=== PATIENT | male | born 1955 | race Caucasian/White ===

== ENCOUNTER → 2019-01-29 | Outpatient (CLI) | payer OTHER | LOC: COL.RAD 10:34 | DX: Z01.818 Encounter for other preprocedural examination (principal); I71.4 Abdominal aortic aneurysm, without rupture; I72.3 Aneurysm of iliac artery; I72.4 Aneurysm of artery of lower extremity; M46.96 Unspecified inflammatory spondylopathy, lumbar region; M51.36 Other intervertebral disc degeneration, lumbar region; M16.11 Unilateral primary osteoarthritis, right hip; N20.0 Calculus of kidney | CPT/HCPCS: Q9967 ==

== ENCOUNTER 2019-03-12 09:38 | Day surgery (SDC) | payer OTHER ==
[~2019-03-12] VITALS: Ht 167.8 cm; Wt 66.0 kg
[2019-03-12] VITALS (10 sets, daily range): BP systolic 92–115; BP diastolic 52–73; PULSE 63–79; TEMP 97.4–98.3
[2019-03-12 10:14] LABS: HEMATOCRIT 41.9 % (42.0-52.0); HEMOGLOBIN 14.1 g/dl (13.5-18.0); MEAN CELL VOLUME 93 fl (80.0-100.0); MEAN CORPUSCULAR HEMOGLOBIN 31 pg (27.0-31.0); MEAN CORPUSCULAR HGB CONC 34 g/dl (33.0-37.0); MEAN PLATELET VOLUME 10.9 fl (7.4-10.4); PLATELET COUNT 224 K/mm3 (130-400); REDCELL DISTRIBUTION WIDTH-CV 14.9 % (11.5-14.5)
[2019-03-12] MEDS ORDERED: PRINZIDE 12.5 M1 TA1 PO (10:28)
[2019-03-12] MEDS ORDERED: NORVASC 5MG5 MG/TAB PO (10:29)
[2019-03-12] MEDS ORDERED: ASPIRIN E.C. 8181 MG PO (10:31)
[2019-03-12] MEDS ORDERED: LIPITOR20 MG PO (10:32)
[2019-03-12 10:48] LABS: CREATININE, serum 1.84 (0.66-1.25); POTASSIUM 3.5 mmol/L (3.4-5.0)
--- NOTE | 2019-03-12 12:21 | NUR ---
ALL MEDICATIONS GIVEN WITH VORB FROM . SEE MERGE FOR ALL MEDICATION ADMIN TIMES. SEE MERGE FOR ALL RASS ASSESSMENTS DURING AND POST PROCEDURE. POSITIVE BARBEAU'S TEST IN THE RIGHT WRIST. FLUID BOLUS OF 250 MLS INFUSING ON ARRIVAL TO SCHEDULE ANALYST.
--- NOTE | 2019-03-12 14:45 | NUR ---
Bedside report given to Tia. Right radial site clean, dry, and intact with TR band in place with 11 mls of air in the band. No oozing or hematoma present. Telemetry in place. VS stable. Patient denies pain. Call light within reach, bed in locked and lowest position.
--- NOTE | 2019-03-12 14:56 | NUR ---
Patient up to room, escorted in bed by EDGAR Estrada. at bedside. Patient appears irritated. Right radial heart cath site, balloon 11ccs of air, site is soft, no bleeding. No complaints at this time. Call light within reach.
--- NOTE | 2019-03-12 15:15 | NUR ---
Patient TR band still on, balloon inflated, bed rest for hour. Patient is agitated. Assessment complete. Denies dizzines, chest pain, n/v. Bilateral hands are cold, cap refill <3, radial pulses strong bilaterally. Med rec and allergies reviewed. Will continue to monitor. Call light within reach.
--- NOTE | 2019-03-12 15:57 | NUR ---
Patient called, feels like "thumb is going numb" and per "hand looks blue". This nurse checked on patient. Hand looks the same color as it did when he arrived. Cap refill is <3 sec, pulse is palpable. Right forearm is significantly harder than left forearm. Patient c/o of mild pain when touching. Patient up to restroom, asked patient to return to bed so we could apply pressure while waiting for director geophysical laboratory to return to look at site. No bleeding or hematoma at site.
--- NOTE | 2019-03-12 16:11 | NUR ---
cytology laboratory manager up to see site, no bleeding. TR band still in place, balloon still inflated. labor relations specialist placed another TR band above first band. Per cytology laboratory manager, "more than likely the arm would be harder further down the forearm". 15 cc air placed in second balloon of TR band. Smairat notified, per Smairat "observe overnight, if worsen, will get ultrasound in the morning. Order PRN morphine 1MG Q4h for pain." Discussed with patient, verbalizes understanding. Informed patient to let nurse know if any numbness or tingling occurs. Will continue to monitor and reassess. Patient wanting to order food. Informed patient of heart healthy diet. patient not happy, cursing about menu choices.
--- NOTE | 2019-03-12 18:39 | NUR ---
patient balloons deflated, TR bands removed. patient right hand is warm, no longer cool or cold. Cap refill <3, radial pulses palpable. RFA is still hard but softer than earlier. Continuing to monitor. Patient has PRN pain medication, morphine, declines anything for pain. No other needs at this time. Call light within reach.
--- NOTE | 2019-03-12 19:00 | NUR ---
Kalyan sitting up in bed watching TV. bedside report complete with Rosa RN at this time. NS infusing at 100ml/hr as ordered. Patient denies c/o of pain or discomfort. Attitude calm and pleasant. Right radial heart Cath observed. Puncture site intact no bleeding. Hand pink and extremity pink and warm. Mid forearm presents with mild swelling and is firm. Day nurse reports that there is no change since slab miller operator looked at it over 1 hour ago. Petechia bruising to hand and wrist. Patient denies c/o of pain. Patient encouraged to notify with any pain, numbness or tingling, or tightness. Patient acknowleges understanding
--- NOTE | 2019-03-12 19:13 | NUR ---
Report given to CANDACE Santos. Patient states hand feels better, extremities are warm, good color, cap refill <3, pulses strong. Per patient, thumb doesn't feel "as numb, i can move it around". There is some petechiae on the right hand and thumb. RFA is getting softer. CANDACE Santos will resume cares and monitor.
--- NOTE | 2019-03-12 20:55 | NUR ---
ASSESSMENT COMPLETED @ 2029. PATIENT LAYING IN BED WATCHING TV. DENIES COMPLAINTS. A/O X 4. NO REPORTS OF PAIN WHEN ASKED. ATTITUDE CALM AND PLEASANT. RIGHT RADIAL HEART CATH PUNCTURE SITE INTACT. NO BLEEDING. MID FOREARM SWELLING AND FIRM THE SAME CHART @ 1900. PATIENT HAS FULL ROM TO HAND AND ARM. DENIES NUMBNESS OR TINGLING. HAND AND FOREARM PINK AND WARM. NO CHANGE IN PETECHIAE BRUISE TO HAND AND WRIST. PATIENT DENIES QUESTIONS OR CONCERNS AT END OF VISIT.
--- NOTE | 2019-03-13 00:20 | NUR ---
PATIENT LAYING IN BED WITH EYES CLOSED. PRESENTS WITH RELAXED BODY POSTURE AND EVEN NON LABORED BREATHING. LIGHT SNORING. AUDIBLE WHEEZING NOTED. PATIENT HAS CHRONIC COPD PER REPORT EARLIER THIS EVENING. REPORTS USING ALBUTEROL INHALER AND NEBULIZER TX NEEDED. REFUSED TX EARLIER THIS EVENING. WILL CONTINUE TO MONITOR. SEE FLOW SHEET FOR FVS WNL. HEART RATE REGULAR ON TELEMETRY. SPO2 WNL ON ROOM AIR.
--- NOTE | 2019-03-13 02:00 | NUR ---
PATIENT LAYING IN BED WITH EYES CLOSED. PRESENTS WITH RELAXED BODY POSTURE AND EVEN NON LABORED RESPIRATIONS. LIGHT SNORIG. NO AUDIBLE WHEEZING. RIGHT RADIAL HEART CATH OBSERVED. NO CHANGE FROM MIDNIGHT OBSERVATION. CALL LIGHT WITHIN REACH.
[2019-03-13 03:55] VITALS: BP 95/62; PULSE 65; TEMP 98.5
--- NOTE | 2019-03-13 04:15 | NUR ---
PATIENT LAYING IN BED WITH EYES CLOSED. AWAKENS WHEN VITAL SIGNS TAKEN. DENIES NEEDS. NO C/O GEOVANY PAIN OR DISCOMFORT. RIGHT RADIAL HEART CATH SITE PRESENTS WITH NO CHANGE FROM PREVIOUS CHARTING.
--- NOTE | 2019-03-13 08:15 | NUR ---
Bruno in room with pt. Discussed the petechiae on his right hand and the swelling. Pt will be discharged today.
[2019-03-13 08:47] VITALS: BP 110/63; PULSE 67; TEMP 97.3
[2019-03-13] MEDS ORDERED: BRILINTA90 MG PO (09:00)
[2019-03-13] MEDS ORDERED: LIPITOR 40MG TA40 MG PO (09:01)
[2019-03-13] MEDS ORDERED: PRINZIDE 12.5 M1 TA1 PO (09:02)
--- NOTE | 2019-03-13 09:36 | NUR ---
Pt sitting up in chair,ready to leave. Bruno was in room earlier and gave pt discharge instructions. Completed morning assessment. Pt denies any pain or shortness of breath. Denies any other needs, wanting his paperwork so he can leave.
--- NOTE | 2019-03-13 09:57 | NUR ---
Discharge paperwork give, all questions asked and answered. INT to LF removed, catheter tip intact, no redness or swelling noted. Wheeled out by [facility] staff.
--- NOTE | 2019-03-13 11:58 | NUR ---
SW met with patient about DC plan. Patient was agitated and reports that he is ready to go. Patient reports that Kristy Garcia is care support. Patient reports he uses [facility] on [address] for medications. PCP Manish Bee. EMR contact , no dpoa and not interested in setting one up. Patient denied the use of DME or medications needs.
== END 2019-03-13 09:45 | disposition home or self-care (01) ==
LOC: COL.CAR 09:38 → MEDICAL 14:37 → COL.CAR 03-13 09:45
PROVIDERS: Internal Medicine Cardiovascular Disease
DX: I25.10 Atherosclerotic heart disease of native coronary artery without angina pectoris (principal); R94.39 Abnormal result of other cardiovascular function study; I10 Essential (primary) hypertension; E78.5 Hyperlipidemia, unspecified; I71.4 Abdominal aortic aneurysm, without rupture; J44.9 Chronic obstructive pulmonary disease, unspecified; E11.9 Type 2 diabetes mellitus without complications; I73.9 Peripheral vascular disease, unspecified; F17.210 Nicotine dependence, cigarettes, uncomplicated; Z79.84 Long term (current) use of oral hypoglycemic drugs; Z79.82 Long term (current) use of aspirin; Z82.49 Family history of ischemic heart disease and other diseases of the circulatory system; Z83.3 Family history of diabetes mellitus
CPT/HCPCS: OP; J1644; J2250; J3010; J7030; Q9967

== ENCOUNTER → 2019-05-18 | Outpatient (CLI) | payer OTHER ==
[~2019-05-18] MED LIST: ASPIRIN E.C. 8181 MG PO; BRILINTA90 MG PO; LIPITOR 40MG TA40 MG PO; LIPITOR20 MG PO; NORVASC 5MG5 MG/TAB PO; PRINZIDE 12.5 M1 TA1 PO
== END ==
LOC: COL.RAD 07:21
DX: R68.81 Early satiety (principal)
CPT/HCPCS: A9541

== ENCOUNTER → 2019-11-22 | Outpatient (CLI) | payer OTHER ==
[~2019-11-22] MED LIST changes: +ALBUTEROL0.83 MG/ML IH; +GLUCOPHAGE1000 MG PO; +K-DUR20 MEQ PO; +PLETAL 100MG T100 MG PO; +PROVENTIL0.09 MG/A1 IH
== END ==
LOC: COL.RAD 07:51
DX: R63.4 Abnormal weight loss (principal); K82.8 Other specified diseases of gallbladder; N26.1 Atrophy of kidney (terminal); R94.5 Abnormal results of liver function studies; R68.81 Early satiety; R17 Unspecified jaundice

== ENCOUNTER 2019-11-24 09:25 | Inpatient (IN) | payer OTHER ==
[~2019-11-24] VITALS: Ht 170.2 cm; Wt 46.8 kg
[2019-11-24] VITALS (113 sets, daily range): BP systolic 66–148; BP diastolic 40–103; PULSE 70–110; TEMP 35.4–35.5; O2SAT 78–100
[~2019-11-24 09:25] MED LIST changes: -ALBUTEROL0.83 MG/ML IH; -GLUCOPHAGE1000 MG PO; -K-DUR20 MEQ PO; -PLETAL 100MG T100 MG PO; -PROVENTIL0.09 MG/A1 IH
--- NOTE | 2019-11-24 10:23 | NUR ---
PT WAS TAKEN TO CT IN WHEELCHAIR. TRNASFERS TO BED AND POSITIONED ON HIS BACK. IMAGING DONE AND SENT.
--- NOTE | 2019-11-24 11:20 | NUR ---
PROCEDURE COMPLETED. MONITORING EQUIPMENT REMOVED. SITE IS [facility]. PRESSURE HELD FOR 3 MINUTES. PT TRANSFERED TO WHEELCHAIR.
--- NOTE | 2019-11-24 12:15 | NUR ---
CALLED AND STATES PT IS HAVING A SEIZURE. PT WAS STARING OFF INTO SPACE NON VERBAL, PT WAS COMING OUT OF THE SEIZURE WHEN NURSE WAS THERE. DR JADE CALLED. PT TRANSFERED TO CART AND TAKEN TO CT FOR SCAN. ABOUT [id number] PT WAS TAKEN TO IMCU AND TRANSFERED TO BED. CARE WAS TRANSFERED TO [facility].
[2019-11-24 13:05] LABS: HEMOGLOBIN 10.5 g/dl (13.5-18.0); MEAN CELL VOLUME 88 fl (80.0-100.0); MEAN CORPUSCULAR HEMOGLOBIN 30 pg (27.0-31.0); MEAN CORPUSCULAR HGB CONC 34 g/dl (33.0-37.0); MEAN PLATELET VOLUME 9.4 fl (7.4-10.4); PLATELET COUNT 208 K/mm3 (130-400); RED BLOOD COUNT 3.48 M/mm3 (4.20-5.60); REDCELL DISTRIBUTION WIDTH-CV 14.5 % (11.5-14.5)
[2019-11-24 13:07] LABS: HEMATOCRIT 30.6 % (42.0-52.0)
[2019-11-24 13:09] LABS: INR 1.2 (0.8-3.0)
[2019-11-24 13:18] LABS: ALANINE AMINOTRANSFERASE 35 U/L (21-72); ALBUMIN 2.9 gm/dL (3.5-5.0); ALKALINE PHOSPHATASE 422 U/L (50-136); ANION GAP 8 mmol/L (7-16); AST,SGOT 64 U/L (15-37); BILIRUBIN,TOTAL 0.9 mg/dL (0.0-1.0); BLOOD UREA NITROGEN 7 mg/dL (9-20); CALCIUM 8.2 mg/dL (8.4-10.2); CARBON DIOXIDE 30 mmol/L (22-30); CREATININE, serum 0.62 (0.66-1.25); GLUCOSE 133 mg/dL (74-106); POTASSIUM 3.7 mmol/L (3.4-5.0); SODIUM 127 mmol/L (137-145); TOTAL PROTEIN 5.7 gm/dL (6.4-8.2)
[2019-11-24 13:24] LABS: CHLORIDE 89 mmol/L (98-107)
[2019-11-24 13:30] LABS: TROPONIN-I < 0.012 ng/mL (0.000-0.035)
--- NOTE | 2019-11-24 13:37 | NUR ---
1ST UNIT PRBC IS FINISHED. END VS FOR THAT UNIT IS 105/84 WITH HR OF 86. PATIENT TOLERATED FIRST UNIT WITHOUT COMPLICATION. 2ND UNIT ORDERED. LAB CALLED TO DRAW TYPE AND SCREEN ON THIS PATIENT
[2019-11-24] MEDS ORDERED: GLUCOPHAGE1000 MG PO (14:13)
[2019-11-24] MEDS ORDERED: PLETAL 100MG T100 MG PO (14:13)
[2019-11-24] MEDS ORDERED: K-DUR20 MEQ PO (14:13)
[2019-11-24] MEDS ORDERED: PROVENTIL0.09 MG/A1 IH (14:15)
[2019-11-24] MEDS ORDERED: ALBUTEROL0.83 MG/ML IH (14:16)
--- NOTE | 2019-11-24 14:39 | NUR ---
BLOOD WARMER INITIATED. DR. TOBIN HERE TO PLACE CENTRAL LINE. DR. SIFUENTES IN ROOM. LEVOPHED INCREASED D/T HYPOTENSION. DR. CHAMORRO CALLED. HE STATES HE WILL CALL [facility] FOR [facility]SFER.
[2019-11-24 15:35] LABS: ARTERIAL BLD GAS O2 SATURATION 95.1 % (92-100); ARTERIAL BLD GAS TCO2 CT 22.9; ARTERIAL BLOOD GAS HCO3 21.8 meq/L (22-26); ARTERIAL BLOOD GAS PCO2 33.9 mmHg (35-45); ARTERIAL BLOOD GAS PO2 72.3 mmHg (80-100); ARTERIAL BLOOD GAS pH 7.43 (7.35-7.45)
[2019-11-24 15:46] LABS: BASO % 0.1 % (0.0-2.0); EOS % 0.1 % (0-4.0); GRAN # 8.7 (1.4-6.5); HEMOGLOBIN 10.5 g/dl (13.5-18.0); LYMPH # 1.7 (1.2-3.4); LYMPH % 14.9 % (20.0-51.0); MEAN CELL VOLUME 90 fl (80.0-100.0); MEAN CORPUSCULAR HEMOGLOBIN 31 pg (27.0-31.0); MEAN CORPUSCULAR HGB CONC 34 g/dl (33.0-37.0); MEAN PLATELET VOLUME 9.2 fl (7.4-10.4); MONO # 0.7 (0.1-0.6); MONO % 5.8 % (1.7-9.3); PLATELET COUNT 110 K/mm3 (130-400); RED BLOOD COUNT 3.41 M/mm3 (4.20-5.60); REDCELL DISTRIBUTION WIDTH-CV 13.6 % (11.5-14.5)
[2019-11-24 15:49] LABS: HEMATOCRIT 30.6 % (42.0-52.0)
[2019-11-24 16:18] LABS: BILIRUBIN,TOTAL 1.3 mg/dL (0.0-1.0); CALCIUM 6.9 mg/dL (8.4-10.2); POTASSIUM 4.1 mmol/L (3.4-5.0); TOTAL PROTEIN 4.3 gm/dL (6.4-8.2)
[2019-11-24 16:30] LABS: CREATININE, serum 0.65 (0.66-1.25)
--- NOTE | 2019-11-24 16:53 | NUR ---
REPORT CALLED TO RENA RENTERIA RN NAME IS "SK". [facility] LEFT WITH PATIENT AROUND 1635. FULL REPORT GIVEN TO WYATT GARCIAEDIC.
== END 2019-11-24 16:35 | disposition home or self-care (01) | DRG 919 ==
LOC: COL.RAD 09:25 → ICU 12:30
PROVIDERS: Internal Medicine Pulmonary Disease; ADMIT Student in an Organized Health Care Education/Training Program
PROC: 05HM33Z Insertion of Infusion Device into Right Internal Jugular Vein, Percutaneous Approach (ICD-10-PCS; principal; 2019-11-24)
DX: K91.841 Postprocedural hemorrhage of a digestive system organ or structure following other procedure (principal); R57.1 Hypovolemic shock; E46 Unspecified protein-calorie malnutrition; I25.10 Atherosclerotic heart disease of native coronary artery without angina pectoris; Y83.8 Other surgical procedures as the cause of abnormal reaction of the patient, or of later complication, without mention of misadventure at the time of the procedure; Z95.5 Presence of coronary angioplasty implant and graft; Z79.82 Long term (current) use of aspirin
CPT/HCPCS: 99223-AI; C1751; C9132; J7030; J7060; P9016; Q9967

== ENCOUNTER 2019-12-10 12:29 | Day surgery (SDC) | payer OTHER ==
[2019-12-10] VITALS (9 sets, daily range): BP systolic 111–178; BP diastolic 86–112; PULSE 72–102; TEMP 97.5–97.8
[~2019-12-10] VITALS: Ht 168.9 cm; Wt 45.4 kg
[~2019-12-10 12:29] MED LIST changes: +ALBUTEROL0.83 MG/ML IH; +GLUCOPHAGE1000 MG PO; +K-DUR20 MEQ PO; +PLETAL 100MG T100 MG PO; +PROVENTIL0.09 MG/A1 IH
[2019-12-10] MEDS ORDERED: ALDACTONE 25MG25 M1 PO (13:39)
[2019-12-10 13:46] LABS: HEMATOCRIT 45.8 % (42.0-52.0); HEMOGLOBIN 15.8 g/dl (13.5-18.0)
[2019-12-10 13:56] LABS: CALCIUM 8.9 mg/dL (8.4-10.2); CREATININE, serum 0.62 (0.66-1.25); POTASSIUM 5.2 mmol/L (3.4-5.0)
--- NOTE | 2019-12-10 15:15 | NUR ---
Patient arrives to [facility] bay 3 post-procedure via cart, accompanied by Endo RN Yu. Bedside report received. Monitoring applied -VSS and WNL on room air. He is drowsy. He has some clear sputum/cough. He denies pain or nausea. His family is brought to the bedside. They deny needs.
--- NOTE | 2019-12-10 15:30 | NUR ---
VSS on room air. Resting comfortably in room.
--- NOTE | 2019-12-10 15:38 | NUR ---
Report called to CANDACE Lr at this time.
--- NOTE | 2019-12-10 15:40 | NUR ---
Dr. Smith comes to talk with the patient and his family at this time.
--- NOTE | 2019-12-10 15:41 | NUR ---
Patient transported to [facility] by nursing staff at this time.
--- NOTE | 2019-12-10 15:54 | NUR ---
[employer] arrived to floor from ambulatory via bed. Patient is alert and oriented, answers questions appropriately. Post op checks initiated. Patient states pain is well controlled at this time. Patient denies needs, call light within reach.
--- NOTE | 2019-12-10 17:04 | NUR ---
Post op checks indicate that patient is consistantly hypertensive. Patient reports that this is his normal blood pressure range. There are no orders related to hypertension. Called attending and left a message, awaiting a call back.
--- NOTE | 2019-12-10 18:22 | NUR ---
Recieved a return call from attending. Reported consistant hypertension and recieved a TORB to continue with previous discharge instructions. Doctor declined to treat hypertension and advised having the patient follow up with his primary care to manage the hypertension.
--- NOTE | 2019-12-10 19:26 | NUR ---
Education provided for patient and family. All belongings and valuables sent with patient. INT discontinued. All questions and concerns answered. Patient assisted out with surgical staff and wheelchair.
== END 2019-12-10 19:37 | disposition home or self-care (01) ==
LOC: SDCO 12:29
PROVIDERS: Nurse Anesthetist, Certified Registered
DX: K83.1 Obstruction of bile duct (principal); K83.8 Other specified diseases of biliary tract; I25.10 Atherosclerotic heart disease of native coronary artery without angina pectoris; J44.9 Chronic obstructive pulmonary disease, unspecified; E11.9 Type 2 diabetes mellitus without complications; F32.9 Major depressive disorder, single episode, unspecified; Z79.82 Long term (current) use of aspirin; Z95.5 Presence of coronary angioplasty implant and graft; Z88.8 Allergy status to other drugs, medicaments and biological substances; Z79.84 Long term (current) use of oral hypoglycemic drugs
CPT/HCPCS: C1769; J2704; J3010; J7030; Q9967